=== PATIENT | female | born 1965 | race Caucasian/White ===

== ENCOUNTER → 2016-10-07 | Outpatient (CLI) | payer BC ==
--- NOTE | 2016-10-07 13:53 | MM ---
Reason for exam: screening (asymptomatic). Last mammogram was performed 5 years and 2 months ago. History: Taking hormonal contraceptives for 20 years 2 months beginning at age 24. MG 3D Screening Mammo W/Cad Bilateral CC and MLO view(s) were taken. Prior study comparison: August 14, 2011, bilateral digital screening mammo w/CAD. June 22, 2009, bilateral digital screening mammogram. Finding: There is an intermediate concern, suspicious 12 mm high density, obscured, indistinct mass in the posterior position consistent with possible cyst or mass, 6cm from the nipple. New finding since August 14, 2011 and June 22, 2009. ASSESSMENT: Incomplete: need additional imaging evaluation, BI-RAD 0 RECOMMENDATION: Ultrasound of the right breast. [facility] will attempt to contact patient to return for ultrasound.
== END | disposition home or self-care (01) ==
LOC: RADMAMWWP 07:37
PROVIDERS: ATTEND Family Medicine
DX: Z12.31 Encounter for screening mammogram for malignant neoplasm of breast (principal); R92.2 Inconclusive mammogram
CPT/HCPCS: 77063; G0202

== ENCOUNTER → 2016-10-08 | Outpatient (CLI) | payer BC ==
--- NOTE | 2016-10-08 11:04 | USB ---
Reason for exam: additional evaluation requested from abnormal screening. History: Taking hormonal contraceptives for 20 years 2 months beginning at age 24. Physical Findings: Nurse did not find any significant physical abnormalities on exam. US Breast Workup RT Right breast ultrasound including all four quadrants, the retroareolar region and axilla demonstrates 14 x 10 x 10mm oval, cystic lesion at 6 o'clock, 3.6cm from nipple, located deep, correlates well to the mammographic finding, a 6mm oval, cystic lesion at 8 o'clock and a cystic cluster at 9 o'clock. Given the mammographic change, a 6 month follow up is recommended. These results were verbally communicated with the patient and result sheet given to the patient on 10/08/16. ASSESSMENT: Probably benign, BI-RAD 3 RECOMMENDATION: Follow-up diagnostic mammogram of the right breast in 6 months.
== END | disposition home or self-care (01) ==
LOC: RADUSWWP 10:19
PROVIDERS: ATTEND Family Medicine
DX: R92.8 Other abnormal and inconclusive findings on diagnostic imaging of breast (principal)

== ENCOUNTER → 2018-01-15 | Outpatient (CLI) | payer BC ==
--- NOTE | 2018-01-15 19:44 | MR ---
EXAMINATION TYPE: MR brain wo/w con DATE OF EXAM: 01/15/2018 COMPARISON: NONE HISTORY: Syncope TECHNIQUE: Multiplanar, multisequence images of the brain and brainstem is performed without and with IV contras t, utilizing 9 mL intravenous Gadavist . FINDINGS: Diffusion weighted images demonstrate no evidence of a recent infarct or other diffusion ab normality. The ventricular system and cisternal spaces are normal in size and appearance. The brain volume is age appropriate. Midline structures demonstrate normal morphology. The cerebellar tonsils are low-lying in position me asuring 4 mm below the foramen magnum. No tonsillar beaking. Post contrast images demonstrate no abno rmal enhancement. The dural venous sinuses appear patent. White matter: There are approximately 5-10 punctate areas of abnormal signal measuring less than 5 mm within the wh ite matter scattered bilaterally. No lesions perpendicular to the ventricular system. No enhancing lesions. No callosal lesions. There is moderate mucosal thickening of the maxillary sinuses compatible with chronic sinusitis. Nasa l septal deviation moderate mucosal thickening involving ethmoid air cells also compatible with chron ic sinusitis. IMPRESSION: 1. Moderate chronic sinusitis with nasal septal deviation. 2. Minimal nonspecific white matter changes of questionable significance. Could been the basis of hyp ertension or remote microvascular ischemia. Other etiologies including demyelinating process not enti rely excluded. Correlate clinically. 3. The cerebellar tonsils are low-lying in position measuring approximately 4 mm below the level of t he foramen magnum. No tonsillar beaking. Correlate for history of Chiari I malformation.
== END | disposition home or self-care (01) ==
LOC: RADMRIMAIN 06:13
PROVIDERS: ATTEND Family Medicine
DX: R55 Syncope and collapse (principal)
CPT/HCPCS: 70553; A9581

== ENCOUNTER → 2018-01-22 | Outpatient (CLI) | payer BC ==
--- NOTE | 2018-01-25 14:19 | EEG ---
ELECTROENCEPHALOGRAM REPORT DATE OF SERVICE: 01/22/2018. REASON FOR TESTING: Syncope. DESCRIPTION OF THE PROCEDURE: This EEG was performed using a 21 channel digital electroencephalograph, following international 10-20 system. DESCRIPTION OF THE RECORDING: From the beginning of the tracing, and with patient's eyes closed, the background rhythm was mostly consisting of 10-11 Hz alpha frequency in the posterior occipital leads. No obvious asymmetry is seen. Photic stimulation was performed with a good driving response seen. No pathological waves were elicited. Hyperventilation was performed with a minimal buildup of amplitude seen. Again, no pathological waves were elicited. Occasional movement and muscle artifacts are seen. The patient remains awake throughout the tracing. No epileptiform discharges were seen. The EKG lead showed a regular rate and rhythm. INTERPRETATION: This awake EEG can be considered within normal limits. There was no asymmetry seen. No epileptiform discharges were noticed. The absence of epileptiform discharges does not rule out the diagnosis of epilepsy; therefore clinical correlation is recommended. JOELLEN / SANDIE: [id number] /
== END | disposition home or self-care (01) ==
LOC: NEUROMAIN 07:43
PROVIDERS: ATTEND Family Medicine
DX: R55 Syncope and collapse (principal)
CPT/HCPCS: 95819

== ENCOUNTER → 2018-02-22 | Outpatient (CLI) | payer BC ==
[2018-02-22 10:22] LABS: HCT 43.2 % (34.0-46.0); HGB 14.3 gm/dL (11.4-16.0); MCH 27.2 pg (25.0-35.0); MCHC 33.1 g/dL (31.0-37.0); MCV 82.2 fL (80.0-100.0); Mean Platelet Volume 6.9; Platelet Count 200 k/uL (150-450); RBC 5.25 m/uL (3.80-5.40); RDW 14.2 % (11.5-15.5); WBC 4.4 k/uL (3.8-10.6)
[2018-02-22 10:46] LABS: ALT 55 U/L (9-52); AST 29 U/L (14-36); Albumin 4.2 g/dL (3.5-5.0); Alkaline Phosphatase 102 U/L (38-126); Anion Gap 7 mmol/L; Blood Urea Nitrogen 15 mg/dL (7-17); Calcium 9.6 mg/dL (8.4-10.2); Carbon Dioxide 30 mmol/L (22-30); Chloride 103 mmol/L (98-107); Cholesterol 287 mg/dL (<200); Glucose 114 mg/dL (74-99); HDL Cholesterol 59 mg/dL (40-60); LDL Cholesterol,Calculated 203 mg/dL (0-99); Potassium 4.4 mmol/L (3.5-5.1); Sodium 140 mmol/L (137-145); Total Bilirubin 0.4 mg/dL (0.2-1.3); Total Protein 7.1 g/dL (6.3-8.2); Triglycerides 124 mg/dL (<150)
[2018-02-22 16:20] LABS: Iron Saturation 16.58 (12.00-45.00)
[2018-02-22 16:27] LABS: Thyroid Peroxidase Antibodies 32.1 U/mL (0.0-60.0)
[2018-02-22 19:58] LABS: ACTH 22.3 pg/mL (0.00-45.99)
== END | disposition home or self-care (01) ==
LOC: LABWHC1 09:31
PROVIDERS: ATTEND Internal Medicine Endocrinology, Diabetes & Metabolism
DX: R53.83 Other fatigue (principal)
CPT/HCPCS: 36415; 80053; 80061; 82024; 82533; 82607; 82728; 83540; 83550; 84146; 84439; 84443; 84481; 85027; 86376

== ENCOUNTER → 2019-04-21 | Outpatient (CLI) | payer BC ==
--- NOTE | 2019-04-21 13:28 | MM ---
Reason for exam: screening (asymptomatic). Last mammogram was performed 2 years and 6 months ago. History: Taking hormonal contraceptives for 20 years 2 months beginning at age 24. Physical Findings: A clinical breast exam by your physician is recommended on an annual basis and results should be correlated with mammographic findings. MG 3D Screening Mammo W/Cad Bilateral CC and MLO view(s) were taken. Prior study comparison: October 07, 2016, bilateral MG 3d screening mammo w/cad. August 14, 2011, bilateral digital screening mammo w/CAD. The breast tissue is heterogeneously dense. This may lower the sensitivity of mammography. Finding #1: There are typically benign round calcifications in both breasts. Finding #2: There is a 10 mm circumscribed oval mass in the upper quadrant, anterior middle position of the right breast. There is a chronic nodularity in the right breast. Finding maybe new since October 07, 2016. ASSESSMENT: Incomplete: need additional imaging evaluation, BI-RAD 0 RECOMMENDATION: Ultrasound of the right breast. [facility] will attempt to contact patient to return for ultrasound.
== END | disposition home or self-care (01) ==
LOC: RADMAMWWP 06:54
PROVIDERS: ATTEND Obstetrics & Gynecology
DX: Z12.31 Encounter for screening mammogram for malignant neoplasm of breast (principal)
CPT/HCPCS: 77063; 77067

== ENCOUNTER → 2019-04-26 | Outpatient (CLI) | payer BC ==
--- NOTE | 2019-04-26 14:27 | USB ---
Reason for exam: additional evaluation requested from abnormal screening. History: Taking hormonal contraceptives for 20 years 2 months beginning at age 24. Physical Findings: Nurse did not find any significant physical abnormalities on exam. US Breast Workup RT Right limited breast ultrasound including focal area of concern, retroareolar and axilla demonstrates a 0.5 x 0.5 x 0.5cm oval, cystic lesion at 10 o'clock and a 0.8 x 0.5 x 0.7cm oval, cystic lesion at 10 o'clock. Probable fibrocystic change. These results were verbally communicated with the patient and result sheet given to the patient on 04/26/19. ASSESSMENT: Probably benign, BI-RAD 3 RECOMMENDATION: Follow-up diagnostic mammogram and ultrasound of the right breast in 6 months.
== END | disposition home or self-care (01) ==
LOC: RADUSWWP 13:01
PROVIDERS: ATTEND Obstetrics & Gynecology
DX: R92.8 Other abnormal and inconclusive findings on diagnostic imaging of breast (principal)

== ENCOUNTER → 2020-06-04 | Outpatient (CLI) | payer BC ==
--- NOTE | 2020-06-05 11:59 | MM ---
Reason for exam: additional evaluation requested from prior study. Last mammogram was performed 1 year and 1 month ago. History: Patient is postmenopausal. Taking hormonal contraceptives for 20 years 2 months beginning at age 24. Taking estrogen beginning at age 54. Taking progesterone beginning at age 54. Taking other hormone beginning at age 54. Physical Findings: Nurse did not find any significant physical abnormalities on exam. MG 3D Diag Mammo W/Cad LUCY Bilateral CC and MLO view(s) were taken. Prior study comparison: April 21, 2019, bilateral MG 3d screening mammo w/cad. October 07, 2016, bilateral MG 3d screening mammo w/cad. The breast tissue is heterogeneously dense. This may lower the sensitivity of mammography. There is chronic nodularity bilaterally. Three areas on the right upper outer quadrant which are benign followed, unchanged for a year. No significant new findings when compared with previous films. These results were verbally communicated with the patient and result sheet given to the patient on 06/04/20. ASSESSMENT: Incomplete: need additional imaging evaluation, BI-RAD 0 RECOMMENDATION: Ultrasound of the right breast. (as ordered)
--- NOTE | 2020-06-05 12:01 | USB ---
Reason for exam: additional evaluation requested from prior study. History: Patient is postmenopausal. Taking hormonal contraceptives for 20 years 2 months beginning at age 24. Taking estrogen beginning at age 54. Taking progesterone beginning at age 54. Taking other hormone beginning at age 54. US Breast Limited RT Right limited breast ultrasound including focal area of concern, retroareolar and axilla demonstrates three cystic, benign lesions measuring 0.8 x 0.8 x 0.4cm at 9 o'clock, 0.6 x 0.6 x 0.5cm at 10 o'clock and 0.5 x 0.4 x 0.4cm at 10 o'clock. Scanned 9-12 o'clock. 1 year follow up mammogram. These results were verbally communicated with the patient and result sheet given to the patient on 06/04/20. ASSESSMENT: Probably benign, BI-RAD 3 RECOMMENDATION: Follow-up diagnostic mammogram of both breasts in 1 year. (total 2 year follow up right breast)
== END | disposition home or self-care (01) ==
LOC: RADMAMWWP 14:47
PROVIDERS: ATTEND Obstetrics & Gynecology
DX: R92.8 Other abnormal and inconclusive findings on diagnostic imaging of breast (principal)
CPT/HCPCS: 77062; 77066

== ENCOUNTER → 2022-05-28 | Outpatient (CLI) | payer BC ==
--- NOTE | 2022-05-29 08:29 | MM ---
Reason for Exam: Screening (asymptomatic). Last mammogram was performed 2 year(s) and 0 month(s) ago. Patient History: Menarche at age 14. First Full-Term at age 22. Postmenopausal. Patient has history of breast feeding. Estrogen, starting at age 54. Currently using Progesterone, starting at age 54. Hormonal Contraceptives, starting at age 24 for 20 years, 2 months. Risk Values: Maye 5 year model risk: 1.1%. NCI Lifetime model risk: 7.2%. Prior Study Comparison: 08/14/2011 Bilateral Screening Mammogram, [facility]. 10/07/2016 Bilateral Screening Mammogram, [facility]. 04/21/2019 Bilateral Screening Mammogram, [facility]. 06/04/2020 Bilateral Diagnostic Mammogram, [facility]. Tissue Density: The breast tissue is heterogeneously dense. This may lower the sensitivity of mammography. Findings: Analyzed By CAD. There is no suspicious group of microcalcifications or new suspicious mass in either breast. Stable bilateral chronic nodularity. No significant change from prior exams. Overall Assessment: Benign, BI-RAD 2 Management: Screening Mammogram of both breasts in 1 year. A clinical breast exam by your physician is recommended on an annual basis and results should be correlated with mammographic findings. Electronically signed and approved by: Omari Hawkins D.O.
--- NOTE | 2022-05-29 08:29 | MM ---
Reason for Exam: Screening (asymptomatic). Last mammogram was performed 2 year(s) and 0 month(s) ago. Patient History: Menarche at age 14. First Full-Term at age 22. Postmenopausal. Patient has history of breast feeding. Estrogen, starting at age 54. Currently using Progesterone, starting at age 54. Hormonal Contraceptives, starting at age 24 for 20 years, 2 months. Risk Values: Maye 5 year model risk: 1.1%. NCI Lifetime model risk: 7.2%. Prior Study Comparison: 08/14/2011 Bilateral Screening Mammogram, [facility]. 10/07/2016 Bilateral Screening Mammogram, [facility]. 04/21/2019 Bilateral Screening Mammogram, [facility]. 06/04/2020 Bilateral Diagnostic Mammogram, [facility]. Tissue Density: The breast tissue is heterogeneously dense. This may lower the sensitivity of mammography. Findings: Analyzed By CAD. There is no suspicious group of microcalcifications or new suspicious mass in either breast. Stable bilateral chronic nodularity. No significant change from prior exams. Overall Assessment: Benign, BI-RAD 2 Management: Screening Mammogram of both breasts in 1 year. A clinical breast exam by your physician is recommended on an annual basis and results should be correlated with mammographic findings. Electronically signed and approved by: Omari Hawkins D.O.
== END | disposition home or self-care (01) ==
LOC: RADMAMWWP 13:12
PROVIDERS: ATTEND Obstetrics & Gynecology
DX: Z12.31 Encounter for screening mammogram for malignant neoplasm of breast (principal); Z78.0 Asymptomatic menopausal state
CPT/HCPCS: 77063; 77067

== ENCOUNTER → 2023-06-18 | Outpatient (CLI) | payer BC ==
--- NOTE | 2023-06-18 09:38 | MM ---
Reason for Exam: Screening (asymptomatic). Last mammogram was performed 1 year(s) and 1 month(s) ago. Patient History: Menarche at age 14. First Full-Term at age 22. Postmenopausal. Patient has history of breast feeding. Estrogen, starting at age 54. Currently using Progesterone, starting at age 54. Hormonal Contraceptives, starting at age 24 for 20 years, 2 months. Risk Values: Maye 5 year model risk: 1.1%. NCI Lifetime model risk: 7.1%. Prior Study Comparison: 04/21/2019 Bilateral Screening Mammogram, [facility]. 06/04/2020 Bilateral Diagnostic Mammogram, [facility]. 05/28/2022 Bilateral MG 3D screening mammo w/cad, [facility]. Tissue Density: The breast tissue is heterogeneously dense. This may lower the sensitivity of mammography. Findings: Analyzed By CAD. There is no suspicious group of microcalcifications or new suspicious mass. Overall Assessment: Negative, BI-RAD 1 Management: Screening Mammogram of both breasts in [address] [facility] will attempt to contact patient to return for supplemental views and ultrasound if indicated. Patient should continue monthly self-breast exams. A clinical breast exam by your physician is recommended on an annual basis. This exam should not preclude additional follow-up of suspicious palpable abnormalities. Note on Maye scores and lifetime risk: 1. A Maye score greater than 3% is considered moderate risk. If this is the case, consider specialist referral to assess eligibility for a risk reducing agent. 2. If overall lifetime risk for the development of breast cancer is 20% or higher, the patient may qualify for future screening with alternating mammogram and breast MRI. Electronically signed and approved by: Keith Conley DO
== END | disposition home or self-care (01) ==
LOC: RADMAMWWP 09:14
PROVIDERS: ATTEND Obstetrics & Gynecology
DX: Z12.31 Encounter for screening mammogram for malignant neoplasm of breast (principal); Z78.0 Asymptomatic menopausal state
CPT/HCPCS: 77063; 77067

== ENCOUNTER 2023-11-25 08:57 | Emergency (ER) | payer BC ==
[2023-11-25 09:07] VITALS: TEMP 97.8
--- NOTE | 2023-11-25 09:43 | ED ---
General Adult HPI - General Source: patient, RN notes reviewed Mode of arrival: ambulatory Limitations: no limitations <Roger Lanier - Last Filed: 11/25/23 09:42> - General Source: patient, RN notes reviewed, old records reviewed <Kraig Jenkins - Last Filed: 11/25/23 14:37> - General Chief complaint: Chest Pain Stated complaint: chest pain Time Seen by Provider: 11/25/23 09:08 - History of Present Illness Initial comments: Quick [id number] female presents emergency department chief complaint of palpitations, chest comfort, cough. She states she initially got sick going down to [place] states that she was seen in urgent care/ER was given steroids and antibiotics. She states that she still remains to be sick was seen by her PCP Dr. Dinero was given another injection of steroids but had recent lab work showing that she had elevated blood sugar and was started on Jardiance she is on day 2. Patient states she still having fluttering of her chest which has been ongoing for 1 week no history of DVT or PE (Roger Lanier) Patient originally seen as a quick note. Patient has been dealing for the last 4 to 6 weeks with intermittent palpitations, chest tightness, nonproductive cough. Has a history of asthma. Has had multiple new medications started including Jardiance however symptoms have been ongoing for longer than that. All started with a viral infection approximately 6 weeks ago. Was previously on antibiotics and steroids which seem to improve her symptoms somewhat but they are still persistent. Presents today for further evaluation at this time. Denies chest pain at this time. Denies any abdominal pain or nausea or vomiting. No other acute complaints. Originally seen as a quick note. I evaluated patient when she was placed in a room. (Kraig Jenkins) - Related Data Home Medications Medication Instructions Recorded Confirmed Empagliflozin [Jardiance] 10 mg PO DAILY 11/25/23 11/25/23 Ergocalciferol [Vitamin D2 (1250 1,250 mcg PO TU 11/25/23 11/25/23 Mcg = 57502 Iu)] Estrodim 1 cap PO HS 11/25/23 11/25/23 LORazepam [Ativan] 0.5 mg PO HS PRN 11/25/23 11/25/23 Omeprazole 20 mg PO HS 04/17/24 04/17/24 Progesterone, Micronized 200 mg PO HS 11/25/23 11/25/23 [Progesterone] Allergies Allergy/AdvReac Type Severity Reaction Status Date / Time tramadol AdvReac Severe Nausea & Verified 11/25/23 13:50 Vomiting Penicillins AdvReac Nausea & Verified 11/25/23 13:50 Vomiting Review of Systems ROS Other: All systems not noted in ROS Statement are negative. <Roger Lanier - Last Filed: 11/25/23 09:42> ROS Other: All systems not noted in ROS Statement are negative. <Kraig Jenkins - Last Filed: 11/25/23 14:37> ROS Statement: Those systems with pertinent positive or pertinent negative responses have been documented in the HPI. Review of Systems: CONST: Denies fever EYES: Denies blurry vision ENT: Denies nasal congestion C/V: Endorses chest tightness RESP: Endorses cough GI: Denies abdominal pain : Denies dysuria SKIN: Denies rash. MSK: Denies joint pain. NEURO: Denies headache (Kraig Jenkins) Past Medical History Past Medical History: Asthma, GERD/Reflux Additional Past Medical History / Comment(s): ASTHMA CHILD. IBS. HX BOWEL OBSTRUCTION. History of Any Multi-Drug Resistant Organisms: None Reported Past Surgical History: Bowel Resection, Cholecystectomy Past Anesthesia/Blood Transfusion Reactions: Motion Sickness, Postoperative N ausea & Vomiting (PONV) Past Psychological History: Anxiety Smoking Status: Never smoker Past Alcohol Use History: Rare Past Drug Use History: None Reported - Past Family History Mother Family Medical History: Deep Vein Thrombosis (DVT) <Roger Lanier - Last Filed: 11/25/23 09:42> General Exam Limitations: no limitations <Roger Lanier - Last Filed: 11/25/23 09:42> <Kraig Jenkins - Last Filed: 11/25/23 14:37> - General Exam Comments Initial Comments: Visual Physical Exam Vital signs reviewed General: Well-appearing, nontoxic, no acute distress. Head: Normocephalic, atraumatic Eyes: PERRLA, EOMI ENT: Airway patent Chest: Nonlabored breathing Skin: No visual rash, normal skin tone Neuro: Alert and oriented 3 Musculoskeletal: No gross abnormalities (Roger Lanier) General: Appears in no acute distress. HEAD: Normal with no signs of head trauma. EYES: PERRLA, EOMI, conjunctiva normal, no discharge. ENT: Hearing grossly intact, normal oropharynx. RESPIRATORY: Mild end expiratory wheezing. No increased work of breathing. No hypoxia. C/V: Regular rate and rhythm. S1 and S2 auscultated, no edema, peripheral pulses 2+ and intact throughout. Pain is not reproducible on palpation. ABD: Abd is soft, nontender, nondistended EXT: Normal range of motion, no obvious deformity SKIN: No rashes or lesions observed on exposed skin. NEURO: Alert and oriented x 4. (Kraig Jenkins) Course Vital Signs 11/25/23 11/25/23 11/25/23 08:58 11:52 12:52 Temperature 97.8 F Pulse Rate 118 H 105 H Pulse Rate [ 105 H Radial] Respiratory 18 16 Rate Blood Pressure 150/88 O2 Sat by Pulse 99 Oximetry 11/25/23 13:58 Temperature Pulse Rate 90 Pulse Rate [ Radial] Respiratory 14 Rate Blood Pressure 144/83 O2 Sat by Pulse 98 Oximetry Medical Decision Making <Roger Lanier - Last Filed: 11/25/23 09:42> - Lab Data Result diagrams: 11/25/23 09:10 11/25/23 09:10 - EKG Data -: EKG Interpreted by Me <Kraig Jenkins - Last Filed: 11/25/23 14:37> - Medical Decision Making I completed the quick note portion of this chart signed Roger Lanier PA-C (Roger Lanier) Was pt. sent in by a medical professional or institution ([facility], [facility] RO[facility], urgent care, hospital, or custodial...) When possible be specific @ -No Did you speak to anyone other than the patient for history (EMS, parent, family, police, friend...)? What history was obtained from this source @ -No Did you review nursing and triage notes (agree or disagree)? Why? @ -I reviewed and agree with nursing and triage notes Were old charts reviewed (outside hosp., previous admission, EMS record, old EKG, old radiological studies, urgent care reports/EKG's, custodial records)? Report findings @ -Old charts reviewed Differential Diagnosis (chest pain, altered mental status, abdominal pain women, abdominal pain men, vaginal bleeding, weakness, fever, dyspnea, syncope, headache, dizziness, GI bleed, back pain, seizure, CVA, palpatations, mental health, musculoskeletal)? @ -Asthma, viral syndrome, pneumonia, PE, ACS. This list is not all inclusive. EKG interpreted by me (3pts min.). @ -As above X-rays interpreted by me (1pt min.). @ -Chest x-ray unremarkable. No obvious acute cardiopulmonary process. CT interpreted by me (1pt min.). @ -None done U/S interpreted by me (1pt. min.). @ -None done What testing was considered but not performed or refused? (CT, X-rays, U/S, la bs)? Why? @ -None What meds were considered but not given or refused? Why? @ -None Did you discuss the management of the patient with other professionals (professionals i.e. , PA, STEWARD/STEWARDESS ROOM, lab, RT, psych nurse, web content & social media manager, motor home electrical foreman, teacher, inshore undersea warfare officer, case work aide)? Give summary @ -No Was smoking cessation discussed for >3mins.? @ -No Was critical care preformed (if so, how long)? @ -No Were there social determinants of health that impacted care today? How? (Homelessness, low income, unemployed, alcoholism, drug addiction, transportation, low edu. Level, literacy, decrease access to med. care, senior living, rehab)? @ -No Was there de-escalation of care discussed even if they declined (Discuss DNR or withdrawal of care, Hospice)? DNR status @ -No What co-morbidities impacted this encounter? (DM, HTN, Smoking, COPD, CAD, Cancer, CVA, ARF, Chemo, Hep., AIDS, mental health diagnosis, sleep apnea, morbid obesity)? @ -None Was patient admitted / discharged? Hospital course, mention meds given and route, prescriptions, significant lab abnormalities, going to OR and other pertinent info. @ -Based on the patient's presentation and physical exam, presents with atypical chest pain. Has a history of asthma. Workup started in triage. Symptoms have been ongoing for weeks. Vitals are within acceptable limits. Workup started as a quick note and remarkable for an undetectable troponin, undetectable D-dimer. Viral swabs negative. Chest x-ray unremarkable. EKG unremarkable. At this time, I evaluate the patient. We will obtain a second troponin and symptomatically treat the patient with Decadron and DuoNeb as I do believe symptoms are likely secondary to her history of reactive airway disease and possibly persistent viral infection. Patient was in agreement this plan. Repeat troponin remains undetectable. Following breathing treatment, patient states pain and symptoms are improved. I discussed results with the patient. I believe it is safer to be discharged home at this time. Heart score is low. She was in agreement this plan. Strict return precautions discussed. I did recommend steroids however patient states she has bad reaction to prednisone and declines these at this time. I offered albuterol inhaler which she also declined as she has 1 at home already. She has a Trelegy inhaler prescribed by her PCP which is not working but she can go and obtain a new one from his office already which I recommended. She was in agreement this plan. I instructed the patient to follow up with their PCP in the next 1-3 days. I explained that the patient should return to the emergency department if they experience any worsening symptoms. Strict return precautions were discussed with the patient. The patient expressed understanding of these instructions. I a nswered all questions that the patient had. The patient was discharged home in good condition with their prescriptions and follow up information. Undiagnosed new problem with uncertain prognosis? @ -No Drug Therapy requiring intensive monitoring for toxicity (Heparin, Nitro, Insulin, Cardizem)? @ -No Were any procedures done? @ -No Diagnosis/symptom? @ -Atypical chest pain, reactive airway disease Acute, or Chronic, or Acute on Chronic? @ -Acute on chronic Uncomplicated (without systemic symptoms) or Complicated (systemic symptoms)? @ -Uncomplicated Side effects of treatment? @ -No Exacerbation, Progression, or Severe Exacerbation? @ -No Poses a threat to life or bodily function? How? (Chest pain, [place], [place], pneumonia, PE, COPD, DKA, ARF, appy, cholecystitis, CVA, Diverticulitis, Homicidal, Suicidal, threat to staff... and all critical care pts) @ -Unlikely (Kraig Jenkins) - Lab Data Lab Results 11/25/23 11/25/23 11/25/23 Range/Units 09:10 09:10 09:10 WBC 4.9 (3.8-10.6) k/uL RBC 5.56 H (3.80-5.40) m/uL Hgb 16.2 H (11.4-16.0) gm/dL Hct 46.6 H (34.0-46.0) % MCV 83.7 (80.0-100.0) fL MCH 29.0 (25.0-35.0) pg MCHC 34.7 (31.0-37.0) g/dL RDW 14.1 (11.5-15.5) % Plt Count 187 (150-450) k/uL MPV 8.4 Neutrophils % 54 % Lymphocytes % 34 % Monocytes % 7 % Eosinophils % 2 % Basophils % 1 % Neutrophils # 2.6 (1.3-7.7) k/uL Lymphocytes # 1.6 (1.0-4.8) k/uL Monocytes # 0.3 (0-1.0) k/uL Eosinophils # 0.1 (0-0.7) k/uL Basophils # 0.0 (0-0.2) k/uL PT 10.4 (10.0-12.5) sec INR 0.9 (<1.2) APTT 25.1 (22.0-30.0) sec D-Dimer <0.17 (<0.60) mg/L FEU Sodium 139 (137-145) mmol/L Potassium 4.2 (3.5-5.1) mmol/L Chloride 105 (98-107) mmol/L Carbon Dioxide 24 (22-30) mmol/L Anion Gap 10 mmol/L BUN 22 H (7-17) mg/dL Creatinine 0.86 (0.52-1.04) mg/dL Est GFR (CKD-EPI)AfAm 87 (>60 ml/min/1.73 sqM) Est GFR (CKD-EPI)NonAf 76 (>60 ml/min/1.73 sqM) Glucose 161 H (74-99) mg/dL Calcium 9.7 (8.4-10.2) mg/dL Magnesium 2.1 (1.6-2.3) mg/dL Total Bilirubin 0.7 (0.2-1.3) mg/dL AST 24 (14-36) U/L ALT 28 (4-34) U/L Alkaline Phosphatase 112 (38-126) U/L Troponin I (0.000-0.034) ng/mL Total Protein 7.9 (6.3-8.2) g/dL Albumin 4.7 (3.5-5.0) g/dL Influenza Type A (PCR) (Not Detectd) Influenza Type B (PCR) (Not Detectd) RSV (PCR) (Not Detectd) SARS-CoV-2 (PCR) (Not Detectd) 11/25/23 11/25/23 11/25/23 Range/Units 09:10 09:44 12:43 WBC (3.8-10.6) k/uL RBC (3.80-5.40) m/uL Hgb (11.4-16.0) gm/dL Hct (34.0-46.0) % MCV (80.0-100.0) fL MCH (25.0-35.0) pg MCHC (31.0-37.0) g/dL RDW (11.5-15.5) % Plt Count (150-450) k/uL MPV Neutrophils % % Lymphocytes % % Monocytes % % Eosinophils % % Basophils % % Neutrophils # (1.3-7.7) k/uL Lymphocytes # (1.0-4.8) k/uL Monocytes # (0-1.0) k/uL Eosinophils # (0-0.7) k/uL Basophils # (0-0.2) k/uL PT (10.0-12.5) sec INR (<1.2) APTT (22.0-30.0) sec D-Dimer (<0.60) mg/L FEU Sodium (137-145) mmol/L Potassium (3.5-5.1) mmol/L Chloride (98-107) mmol/L Carbon Dioxide (22-30) mmol/L Anion Gap mmol/L BUN (7-17) mg/dL Creatinine (0.52-1.04) mg/dL Est GFR (CKD-EPI)AfAm (>60 ml/min/1.73 sqM) Est GFR (CKD-EPI)NonAf (>60 ml/min/1.73 sqM) Glucose (74-99) mg/dL Calcium (8.4-10.2) mg/dL Magnesium (1.6-2.3) mg/dL Total Bilirubin (0.2-1.3) mg/dL AST (14-36) U/L ALT (4-34) U/L Alkaline Phosphatase (38-126) U/L Troponin I <0.012 <0.012 (0.000-0.034) ng/mL Total Protein (6.3-8.2) g/dL Albumin (3.5-5.0) g/dL Influenza Type A (PCR) Not Detected (Not Detectd) Influenza Type B (PCR) Not Detected (Not Detectd) RSV (PCR) Not Detected (Not Detectd) SARS-CoV-2 (PCR) Not Detected (Not Detectd) - EKG Data EKG Comments: 12-lead Electrocardiogram Interpretation Note EKG was reviewed and interpreted by myself. 12-lead ECG performed at 0907 is interpreted by me as revealing sinus tachycardia at a rate of 109 beats per minute. [place] is normal. [place] interval is 154 ms, QRS duration is 89 ms, QTc is 416 ms.. There were no ST or T wave abnormalities to suggest myocardial ischemia or injury. R wave progression across the precordium was satisfactory. By my interpretation this EKG is non-diagnostic for acute ischemia. (Kraig Jenkins) Disposition <Roger Lanier - Last Filed: 11/25/23 09:42> Is patient prescribed a controlled substance at d/c from ED?: No Time of Disposition: 13:50 <Kraig Jenkins - Last Filed: 11/25/23 14:37> Clinical Impression: Atypical chest pain, Reactive airway disease Disposition: HOME SELF-CARE Condition: Good Instructions (If sedation given, give patient instructions): Chest Pain (ED), Asthma (ED) Referrals: Neli Dinero DO [Primary Care Provider] - 1-2 days
--- NOTE | 2023-11-25 10:24 | XR ---
EXAMINATION TYPE: XR chest 2V DATE OF EXAM: 11/25/2023 10:10 AM CLINICAL INDICATION:Female, 58 years old with history of Chest Pain; [facility] COMPARISON: None TECHNIQUE: XR chest 2V Frontal and lateral views of the chest. FINDINGS: Lungs/Pleura: There is no evidence of pleural effusion, focal consolidation, or pneumothorax. Pulmonary vascularity: Unremarkable. Heart/mediastinum: Cardiomediastinal silhouette is unremarkable. Musculoskeletal: No acute osseous pathology. IMPRESSION: No acute cardiopulmonary disease/process.
[2023-11-25 10:44] LABS: Basophils % (A) 1 %; Eosinophils # (A) 0.1 k/uL (0-0.7); Eosinophils % (A) 2 %; HCT 46.6 % (34.0-46.0); HGB 16.2 gm/dL (11.4-16.0); Lymphocytes # (A) 1.6 k/uL (1.0-4.8); Lymphocytes % (A) 34 %; MCHC 34.7 g/dL (31.0-37.0); MCV 83.7 fL (80.0-100.0); Mean Platelet Volume 8.4; Monocytes # (A) 0.3 k/uL (0-1.0); Monocytes % (A) 7 %; Neutrophils # (A) 2.6 k/uL (1.3-7.7); Neutrophils % (A) 54 %; Platelet Count 187 k/uL (150-450); RBC 5.56 m/uL (3.80-5.40); RDW 14.1 % (11.5-15.5); WBC 4.9 k/uL (3.8-10.6)
[2023-11-25 10:54] LABS: ALT 28 U/L (4-34); AST 24 U/L (14-36); African American GFR (CKD) 87 (>60 ml/min/1.73 sqM); Albumin 4.7 g/dL (3.5-5.0); Alkaline Phosphatase 112 U/L (38-126); Anion Gap 10 mmol/L; Blood Urea Nitrogen 22 mg/dL (7-17); Calcium 9.7 mg/dL (8.4-10.2); Carbon Dioxide 24 mmol/L (22-30); Chloride 105 mmol/L (98-107); Glucose 161 mg/dL (74-99); Magnesium 2.1 mg/dL (1.6-2.3); Non-African American GFR(CKD) 76 (>60 ml/min/1.73 sqM); Potassium 4.2 mmol/L (3.5-5.1); Sodium 139 mmol/L (137-145); Total Bilirubin 0.7 mg/dL (0.2-1.3); Total Protein 7.9 g/dL (6.3-8.2)
[2023-11-25 11:05] LABS: INR 0.9 (<1.2); Partial Thromboplastin Time 25.1 sec (22.0-30.0); Prothrombin Time 10.4 sec (10.0-12.5)
[2023-11-25] MEDS: DEXAMETHASONE SOD PHOSPHATE 10 MG/ML 1 ML VIAL IM STA (12:45)
[2023-11-25] MEDS: IPRATROPIUM-ALBUTEROL 3 ML NEB INHALATION STA (12:51)
[2023-11-25 14:09] VITALS: BP 144/83; PULSE 90; RESP 14
== END 2023-11-25 13:59 | disposition home or self-care (01) ==
LOC: EC 08:57
DX: J45.909 Unspecified asthma, uncomplicated (principal); Z88.0 Allergy status to penicillin; Z88.5 Allergy status to narcotic agent; Z90.49 Acquired absence of other specified parts of digestive tract; Z11.52 Encounter for screening for COVID-19
CPT/HCPCS: 96372 ×2; 99285 ×2; 36415; 94640; 93005; 85379; 80053; 83735; 84484; 85025; 85610; 85730; 87636; 71046; J1100

== ENCOUNTER → 2024-01-13 | Outpatient (CLI) | payer BC ==
--- NOTE | 2024-01-13 10:38 | CA ---
Exercise Stress Test Report Name: Brenda Wick Exam Date: 01/13/2024 10:00 Exam Location: [place] Stress Ht (in): 69 Wt (lb): 204 BSA: 2.08 Ordering Phys: Neli Dinero DO Referring Phys: Neli Dinero DO Technologist: Denae Deras RDCS Age: 58 Gender: F : 1965 Procedure CPT: Indications: I20.9 ANGINA PECTORIS, UNSPECIFIED ICD-10 Codes: Patient History: CP, RAN, PALP, DM, FAMILY HX, ASTHMA Medications: JARDIANCE, PROGESTERONE, OMEPRAZOLE, ESTRO DIM, VIT D, ADIVAN Meds past 24 hrs: Pretest Chest Pain: STRESS TEST Kamar Protocol Exercise Duration (min:sec): 08:[address] Depressions (mm): Angina Score: [place] Score: Resting HR (bpm): 82 Peak HR (bpm): 148 Resting BP (mmHg): 152 / 90 Peak BP (mmHg): 214 / 48 MPHR: 163 Target HR: 139 % MPHR: 91 METS: 10.3 Total Dose: Peak Dose: Atropine: Double Product: 44693 BP Response: Stress Termination: Reached target heart rate Stress Symptoms: No chest pain or symptoms Stress Summary: ECG ANALYSIS Resting ECG: Normal sinus rhythm normal axis normal intervals Stress ECG: Patient exercised on Kamar protocol for 8 minutes achieving 9 METs 85% of predicted maximal heart rate without chest pain Peak exercise there was half a millimeter ST segment depression noted in the inferolateral leads CONCLUSIONS Good exercise tolerance Nondiagnostic EKG changes with exercise Dr. Wero Shelton MD (Electronically Signed) Final Date: 13 January 2024 10:37
--- NOTE | 2024-01-13 14:59 | NM ---
EXAMINATION TYPE: NM stress cardiolite complete DATE OF EXAM: 01/13/2024 COMPARISON: NONE CLINICAL INDICATION: Female, 58 years old with history of I20.9 ANGINA PECTORIS, UNSPECIFIED; TECHNIQUE: After the intravenous administration of 9.9 mCi Tc 99m Sestamibi - Rest images obtained 6 2 minutes post injection. The patient exercised using a FILI protocol and 1 minute prior to peak e xercise was injected with 25.3 mCi Tc 99m Sestamibi - Stress images obtained 15 minutes post injectio n. FINDINGS: Targeted heart rate (139 bpm) was achieved during performance of the study (achieved 148 bpm). Total exercise time 8 minutes. Review of stress and rest SPECT images demonstrates no distinct perfusion ab normality. Gated analysis shows normal wall motion with an estimated left ventricular ejection fract ion of 61 %. TID is calculated at 0.73. IMPRESSION: No scintigraphic evidence for reversible ischemia
== END | disposition home or self-care (01) ==
LOC: RADNMMAIN 08:21
PROVIDERS: ATTEND Family Medicine
DX: R94.31 Abnormal electrocardiogram [ECG] [EKG] (principal); I20.9 Angina pectoris, unspecified; E11.9 Type 2 diabetes mellitus without complications; J45.909 Unspecified asthma, uncomplicated; R00.2 Palpitations; R07.9 Chest pain, unspecified
CPT/HCPCS: 93017; 78452; A9500

== ENCOUNTER → 2024-08-25 | Outpatient (CLI) | payer BC ==
--- NOTE | 2024-08-25 12:26 | MM ---
Reason for Exam: Screening (asymptomatic). Last mammogram was performed 1 year(s) and 2 month(s) ago. Patient History: Menarche at age 14. First Full-Term at age 22. Postmenopausal. Patient has history of breast feeding. Estrogen, starting at age 54. Currently using Progesterone, starting at age 54. Hormonal Contraceptives, starting at age 24 for 20 years, 2 months. Risk Values: Maye 5 year model risk: 1.2%. NCI Lifetime model risk: 6.9%. Prior Study Comparison: 06/04/2020 Bilateral Diagnostic Mammogram, [facility]. 05/28/2022 Bilateral MG 3D screening mammo w/cad, [facility]. 06/18/2023 Bilateral MG 3D screening mammo w/cad, [facility]. Tissue Density: The breasts are heterogeneously dense, which may obscure small masses. Findings: Analyzed By CAD. There are small benign appearing round calcifications bilaterally redemonstrated. There are benign-appearing bilateral axillary lymph nodes redemonstrated. There is stable 4 mm circumscribed oval mass medial aspect of the left breast. There is no suspicious new group of microcalcifications or new suspicious mass in either breast. Overall Assessment: Benign, BI-RAD 2 Management: Screening Mammogram of both breasts in 1 year. . Patient should continue monthly self-breast exams. A clinical breast exam by your physician is recommended on an annual basis. This exam should not preclude additional follow-up of suspicious palpable abnormalities. Note on Maye scores and lifetime risk: 1. A Maye score greater than 3% is considered moderate risk. If this is the case, consider specialist referral to assess eligibility for a risk reducing agent. 2. If overall lifetime risk for the development of breast cancer is 20% or higher, the patient may qualify for future screening with alternating mammogram and breast MRI. [facility], , 08/25/2024 12:22 PM. Electronically signed and approved by: Alan Alexander M.D.
== END | disposition home or self-care (01) ==
LOC: RADMAMWWP 08:51
PROVIDERS: ATTEND Obstetrics & Gynecology
DX: Z12.31 Encounter for screening mammogram for malignant neoplasm of breast (principal); Z78.0 Asymptomatic menopausal state; R92.333 Mammographic heterogeneous density, bilateral breasts
CPT/HCPCS: 77063; 77067